=== PATIENT | male | born 1990 | race Caucasian/White ===

== ENCOUNTER 2025-04-29 13:19 | Emergency (ER) | payer OTHER ==
[~2025-04-29] VITALS: Ht 172.7 cm; Wt 77.3 kg
[2025-04-29 13:34] VITALS: BP 112/73; PULSE 64; RESP 14; O2SAT 99
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
[2025-04-29 14:17] VITALS: TEMP 98.4
== END 2025-04-29 14:20 | disposition home or self-care (01) ==
LOC: ER 13:19
DX: Z02.89 Encounter for other administrative examinations (principal); V89.2XXA Person injured in unspecified motor-vehicle accident, traffic, initial encounter; Y93.89 Activity, other specified; Y92.89 Other specified places as the place of occurrence of the external cause; Y99.8 Other external cause status
CPT/HCPCS: 99283